=== PATIENT | female | born 1995 | race Caucasian/White ===

== ENCOUNTER 2020-07-03 06:49 | Emergency (ER) | payer BC, MEDICAID ==
--- NOTE | 2020-07-03 07:34 | EDM.PDOC ---
ED HPI GENERAL MEDICAL PROBLEM - General Chief Complaint: ENT Problem Stated Complaint: RT EYE HURTS Time Seen by Provider: 07/03/20 07:18 Source of Information: Reports: Patient History Limitations: Reports: No Limitations - History of Present Illness INITIAL COMMENTS - FREE TEXT/NARRATIVE: 25-year-old female presents with irritation below the right eye worsening for 2 weeks. She denies fever, chills, pain with ocular range of motion, eye pain, blurred vision, headache. She recently moved here from [place] and does not have a PCP. ROS: A 10-point review of systems, other than pertinent positives and negatives as stated per HPI, is otherwise negative Past medical history: No additional pertinent history Past Surgical history: No additional pertinent history Social history: No additional pertinent history Family history: No additional pertinent history PHYSICAL EXAM General: AOx4, GCS = 15, No distress HEENT: dry mucous membrane, trace periorbital cellulitis, no exophthalmos, no pain with ocular range of motion, no injected conjunctive a, PERRLA Neck: supple, no meningismus, no Kernig or Brudzinski Cardiac: S1S2 RRR Respiratory: CTAB, no crackles or rales, no wheezing Abdomen: Soft, nontender, no rebound or guarding, nondistended, no pulsatile mass. Back: nontender Musculoskeletal: NVI distally, no deformity Neuro: No focal deficits, CN 2 - 12 WNL. - Related Data Allergies Allergy/AdvReac Type Severity Reaction Status Date / Time bacitracin Allergy Other Verified 07/03/20 07:40 [From Neosporin ([id number])] neomycin Allergy Other Verified 07/03/20 07:40 [From Neosporin ([id number])] polymyxin B Allergy Other Verified 07/03/20 07:40 [From Neosporin ([id number])] Home Meds: Home Meds Sulfamethoxazole/Trimethoprim [Bactrim Ds Tablet] 2 each PO BID #40 tablet 07/03/20 [Rx] cephALEXin [Keflex] 500 mg PO Q8H #30 cap 07/03/20 [Rx] ED ROS ENT - Review of Systems Review Of Systems: Comprehensive ROS is negative, except as noted in HPI. ED EXAM, ENT - Physical Exam Exam: See Below (see dictation) Course - Vital Signs Last Recorded V/S: Last Vital Signs Temp 96.8 F L 07/03/20 07:10 Pulse 87 07/03/20 07:10 Resp 16 07/03/20 07:10 BP 109/67 07/03/20 07:10 Pulse Ox 98 07/03/20 07:10 - Re-Assessments/Exams Free Text/Narrative Re-Assessment/Exam: 07/03/20 07:32 I advised the patient to return to the ER for reevaluation if symptoms worsened, including fever, worsening pain, or any other worrisome symptoms. I instructed the patient to follow up with their PCP within 2-3 days. MEDICAL DECISION MAKING: I reviewed the patients past medical records, lab and radiographic findings. I discussed the case with the patient. My differential diagnosis included: Periorbital cellulitis, status, no suspicion for orbital cellulitis. No fever or pain with ocular range of motion, I do not suspect orbital cellulitis. She had trace swelling and tenderness below her right eye, no rash to suggest for shingles Departure - Departure Time of Disposition: 07:33 Disposition: Home, Self-Care 01 Condition: Good Clinical Impression: Periorbital cellulitis of right eye - Discharge Information *PRESCRIPTION DRUG MONITORING PROGRAM REVIEWED*: Not Applicable *COPY OF PRESCRIPTION DRUG MONITORING REPORT IN PATIENT OMEGA: Not Applicable Prescriptions: Sulfamethoxazole/Trimethoprim [Bactrim Ds Tablet] 2 each PO BID #40 tablet cephALEXin [Keflex] 500 mg PO Q8H #30 cap Instructions: Orbital Cellulitis Referrals: PCP,None [Primary Care Provider] - 3 Days Forms: ED Department Discharge Additional Instructions: The need for follow-up, as well as the timing and circumstances, are variable depending upon the specifics of your emergency department visit. If you don't have a primary care physician on staff, we will provide you with a referral. We always advise you to contact your personal physician following an emergency department visit to inform them of the circumstance of the visit and for follow-up with them and/or the need for any referrals to a consulting specialist. The emergency department will also refer you to a specialist when appropriate. This referral assures that you have the opportunity for follow-up care with a specialist. All of these measure are taken in an effort to provide you with optimal care, which includes your follow-up. Under all circumstances we always encourage you to contact your private physician who remains a resource for coordinating your care. When calling for follow-up care, please make the office aware that this follow-up is from your recent emergency room visit. If for any reason you are refused follow-up, please contact the [facility] Emergency Department at and asked to speak to the emergency department charge nurse. If you do not have a primary care doctor, please follow up with the clinics below within 3-5 days. [facility] [address] [place] [id number] [facility] [address] [place] [id number] Sepsis Event Note (ED) - Focused Exam Vital Signs: Vital Signs Temp Pulse Resp BP Pulse Ox 07/03/20 07:10 96.8 F L 87 16 109/67 98
== END 2020-07-03 07:50 | disposition home or self-care (01) ==
LOC: MW.ED 06:49
DX: L03.213 Periorbital cellulitis (principal); Z88.1 Allergy status to other antibiotic agents
CPT/HCPCS: 99282; 99283